=== PATIENT | female | born 1940 | race Caucasian/White ===

== ENCOUNTER 2019-09-03 14:15 | Emergency (ER) | payer MEDICARE ==
[~2019-09-03] VITALS: Ht 152.4 cm; Wt 49.9 kg
[2019-09-03] VITALS (8 sets, daily range): BP systolic 139–160; BP diastolic 43–64
[~2019-09-03 14:15] MED LIST: ASPIRIN FOR CHI81 MG PO; ATENOLOL50 MG PO; AUGMENTIN 500500 M1 PO; HCTZ/TRIAMTEREN1 CA2 PO; K-Dur 20MEQ20 MEQ PO; LUMIGAN 2.5 ML2.5 M1 OPH; TIMOPTIC 0.25% OPH; ZOCOR20 MG PO
[2019-09-03 15:20] LABS: BASO # 0.1 10*3/uL (0.0-0.1); BASO % 0.7 % (0.0-1.0); EOS # 0.2 10*3/uL (0.0-0.4); EOS % 2.7 % (1.0-4.0); HEMATOCRIT 23.4 % (37.0-47.0); HEMOGLOBIN 7.4 g/dl (12.0-16.0); LYMPH % 14.6 % (27.0-41.0); MEAN CELL VOLUME 102.6 fl (81.0-99.0); MEAN CORPUSCULAR HGB 32.5 pg (27.0-31.0); MEAN CORPUSCULAR HGB CONC 31.6 g/dl (33.0-37.0); MEAN PLATELET VOLUME 9.9 fl (9.6-12.3); MONO # 0.6 10*3/uL (0.1-1.0); MONO % 7.9 % (3.0-9.0); NEUT # 5.1 10*3/uL (2.3-7.9); NEUT % 73.7 % (47.0-73.0); PLATELET COUNT AUTOMATED 264 10*3/uL (130-400); RED BLOOD COUNT 2.28 10*6/uL (4.10-5.10); RED CELL DISTRI WIDTH 17.5 % (0-14.5); WHITE BLOOD COUNT 6.9 10*3/uL (4.8-10.8)
[2019-09-03] MEDS ORDERED: MIRTAZAPINE7.5 MG PO (15:28)
[2019-09-03] MEDS ORDERED: COMBIGAN 0.2%-010 ML OP (15:30)
[2019-09-03] MEDS ORDERED: VITAMIN D-32000 UNI1 PO (15:31)
[2019-09-03] MEDS ORDERED: ATIVAN0.5 MG PO (15:32)
[2019-09-03] MEDS ORDERED: LASIX20 MG PO (15:32)
[2019-09-03] MEDS ORDERED: LUTEIN20 M2 PO (15:33)
[2019-09-03] MEDS ORDERED: OMEPRAZOLE MAGN20 MG PO (15:33)
[2019-09-03] MEDS ORDERED: ULTRAM50 MG PO (15:34)
[2019-09-03 15:36] LABS: INTERNATIONAL NORM RATIO 0.9 (2.0-3.5)
[2019-09-03 15:43] LABS: ALBUMIN 2.9 gm/dl (3.1-4.5); CREATININE 1.75 mg/dL (0.55-1.02); POTASSIUM 3.7 mmol/L (3.5-5.1); TOTAL PROTEIN 6.6 gm/dL (6.4-8.2); TROPONIN I 0.045 ng/ml (<0.045)
== END 2019-09-03 20:30 | disposition home or self-care (01) ==
LOC: ED 14:15
PROVIDERS: Physician Assistant
DX: D64.9 Anemia, unspecified (principal); R79.1 Abnormal coagulation profile; N18.6 End stage renal disease; Z99.2 Dependence on renal dialysis; Z79.899 Other long term (current) drug therapy; Z79.82 Long term (current) use of aspirin

== ENCOUNTER 2019-09-16 18:53 | Inpatient (IN) | payer MEDICARE ==
[~2019-09-16] VITALS: Ht 152.4 cm; Wt 52.2 kg
[~2019-09-16 18:53] MED LIST changes: +ATIVAN0.5 MG PO; +COMBIGAN 0.2%-010 ML OP; +LASIX20 MG PO; +LUTEIN20 M2 PO; +MIRTAZAPINE7.5 MG PO; +OMEPRAZOLE MAGN20 MG PO; +ULTRAM50 MG PO; +VITAMIN D-32000 UNI1 PO
[2019-09-16 19:00] VITALS: BP 198/74
[2019-09-16 19:54] LABS: BASO # 0.1 10*3/uL (0.0-0.1); BASO % 0.7 % (0.0-1.0); EOS # 0.3 10*3/uL (0.0-0.4); HEMATOCRIT 30.6 % (37.0-47.0); HEMOGLOBIN 9.7 g/dl (12.0-16.0); LYMPH # 1.5 10*3/uL (1.3-4.4); LYMPH % 13.5 % (27.0-41.0); MEAN CELL VOLUME 94.4 fl (81.0-99.0); MEAN CORPUSCULAR HGB 29.9 pg (27.0-31.0); MEAN CORPUSCULAR HGB CONC 31.7 g/dl (33.0-37.0); MEAN PLATELET VOLUME 10.1 fl (9.6-12.3); MONO # 1.1 10*3/uL (0.1-1.0); NEUT # 7.8 10*3/uL (2.3-7.9); NEUT % 72.4 % (47.0-73.0); PLATELET COUNT AUTOMATED 261 10*3/uL (130-400); RED BLOOD COUNT 3.24 10*6/uL (4.10-5.10); RED CELL DISTRI WIDTH 21.2 % (0-14.5); WHITE BLOOD COUNT 10.8 10*3/uL (4.8-10.8)
[2019-09-16 20:06] LABS: CREATININE 5.04 mg/dL (0.55-1.02); POTASSIUM 4.3 mmol/L (3.5-5.1)
[2019-09-16 20:36] VITALS: BP 190/86
[2019-09-16 21:25] VITALS: BP 193/72
[2019-09-16] MEDS ORDERED: LASIX20 MG PO (21:42)
[2019-09-17] VITALS: BP 164/52
[2019-09-17 06:26] LABS: BASO # 0.1 10*3/uL (0.0-0.1); BASO % 0.5 % (0.0-1.0); EOS # 0.4 10*3/uL (0.0-0.4); EOS % 3.5 % (1.0-4.0); HEMATOCRIT 27.2 % (37.0-47.0); HEMOGLOBIN 8.8 g/dl (12.0-16.0); LYMPH % 17.8 % (27.0-41.0); MEAN CELL VOLUME 92.8 fl (81.0-99.0); MEAN CORPUSCULAR HGB CONC 32.4 g/dl (33.0-37.0); MEAN PLATELET VOLUME 9.7 fl (9.6-12.3); MONO # 0.9 10*3/uL (0.1-1.0); MONO % 8.4 % (3.0-9.0); NEUT # 7.7 10*3/uL (2.3-7.9); NEUT % 69.4 % (47.0-73.0); PLATELET COUNT AUTOMATED 266 10*3/uL (130-400); RED BLOOD COUNT 2.93 10*6/uL (4.10-5.10); RED CELL DISTRI WIDTH 20.8 % (0-14.5); WHITE BLOOD COUNT 11.1 10*3/uL (4.8-10.8)
[2019-09-17 06:55] LABS: ALBUMIN 2.9 gm/dl (3.1-4.5); CREATININE 5.18 mg/dL (0.55-1.02); PHOSPHOROUS 6.2 mg/dL (2.5-4.9); POTASSIUM 4.2 mmol/L (3.5-5.1); TOTAL PROTEIN 6.1 gm/dL (6.4-8.2)
[2019-09-17 06:56] LABS: ACT PARTIAL THROMBO TIME 26.8 SECONDS (20.0-32.1)
[2019-09-17 07:04] LABS: THYROID STIM HORMONE (HS) 4.47 uIU/ml (0.358-4.75)
[2019-09-17 07:51] LABS: VITAMIN D, 25-HYDROXY 44.5 ng/mL (30-100)
[2019-09-17 08:10] VITALS: BP 170/70
[2019-09-17 11:00] VITALS: BP 160/60
[2019-09-17 12:00] VITALS: BP 165/50
[2019-09-17 16:00] VITALS: BP 165/58
[2019-09-17 16:39] VITALS: BP 190/68
[2019-09-18] VITALS: BP 136/61
[2019-09-18 07:32] LABS: BASO % 0.4 % (0.0-1.0); EOS # 0.3 10*3/uL (0.0-0.4); EOS % 2.8 % (1.0-4.0); HEMATOCRIT 27.1 % (37.0-47.0); HEMOGLOBIN 8.6 g/dl (12.0-16.0); LYMPH # 1.6 10*3/uL (1.3-4.4); LYMPH % 14.9 % (27.0-41.0); MEAN CELL VOLUME 95.1 fl (81.0-99.0); MEAN CORPUSCULAR HGB 30.2 pg (27.0-31.0); MEAN CORPUSCULAR HGB CONC 31.7 g/dl (33.0-37.0); MONO # 0.9 10*3/uL (0.1-1.0); MONO % 7.9 % (3.0-9.0); NEUT % 73.4 % (47.0-73.0); PLATELET COUNT AUTOMATED 227 10*3/uL (130-400); RED BLOOD COUNT 2.85 10*6/uL (4.10-5.10); RED CELL DISTRI WIDTH 20.4 % (0-14.5); WHITE BLOOD COUNT 10.9 10*3/uL (4.8-10.8)
[2019-09-18 07:37] LABS: CREATININE 2.63 mg/dL (0.55-1.02); POTASSIUM 4.6 mmol/L (3.5-5.1)
[2019-09-18 16:00] VITALS: BP 144/74
[2019-09-18 20:00] VITALS: BP 136/82
[2019-09-19] VITALS: BP 140/67
[2019-09-19 06:22] LABS: BASO % 0.4 % (0.0-1.0); EOS # 0.3 10*3/uL (0.0-0.4); EOS % 3.5 % (1.0-4.0); HEMATOCRIT 23.8 % (37.0-47.0); HEMOGLOBIN 7.4 g/dl (12.0-16.0); LYMPH # 1.6 10*3/uL (1.3-4.4); LYMPH % 18.8 % (27.0-41.0); MEAN CELL VOLUME 96.7 fl (81.0-99.0); MEAN CORPUSCULAR HGB 30.1 pg (27.0-31.0); MEAN CORPUSCULAR HGB CONC 31.1 g/dl (33.0-37.0); MEAN PLATELET VOLUME 9.9 fl (9.6-12.3); MONO # 0.8 10*3/uL (0.1-1.0); MONO % 9.3 % (3.0-9.0); NEUT # 5.8 10*3/uL (2.3-7.9); NEUT % 67.5 % (47.0-73.0); PLATELET COUNT AUTOMATED 205 10*3/uL (130-400); RED BLOOD COUNT 2.46 10*6/uL (4.10-5.10); RED CELL DISTRI WIDTH 20.2 % (0-14.5); WHITE BLOOD COUNT 8.6 10*3/uL (4.8-10.8)
[2019-09-19 06:26] LABS: CREATININE 4.44 mg/dL (0.55-1.02)
[2019-09-19 07:30] VITALS: BP 140/58
[2019-09-19 11:40] VITALS: BP 126/46
[2019-09-19 16:00] VITALS: BP 153/52
[2019-09-19 20:00] VITALS: BP 144/47
[2019-09-20] VITALS (16 sets, daily range): BP systolic 121–184; BP diastolic 39–80
[2019-09-20 05:50] LABS: HEMATOCRIT 22.1 % (37.0-47.0); MEAN CELL VOLUME 96.9 fl (81.0-99.0); MEAN CORPUSCULAR HGB 30.3 pg (27.0-31.0); MEAN CORPUSCULAR HGB CONC 31.2 g/dl (33.0-37.0); MEAN PLATELET VOLUME 9.8 fl (9.6-12.3); PLATELET COUNT AUTOMATED 198 10*3/uL (130-400); RED BLOOD COUNT 2.28 10*6/uL (4.10-5.10); RED CELL DISTRI WIDTH 19.4 % (0-14.5); WHITE BLOOD COUNT 8.7 10*3/uL (4.8-10.8)
[2019-09-20 05:53] LABS: HEMOGLOBIN 6.9 g/dl (12.0-16.0)
[2019-09-20 06:37] LABS: ALBUMIN 2.8 gm/dl (3.1-4.5); CREATININE 6.09 mg/dL (0.55-1.02); POTASSIUM 5.1 mmol/L (3.5-5.1); TOTAL PROTEIN 5.8 gm/dL (6.4-8.2)
[2019-09-20 06:45] LABS: BASOPHILS 1 % (0-1); OVALOCYTES FEW; PLATELET SUFFICIENCY NORMAL (NORMAL); SCHISTOCYTES FEW; TARGET CELLS FEW; TOTAL CELLS COUNTED 100 #CELLS
[2019-09-20 16:08] LABS: BASO # 0.1 10*3/uL (0.0-0.1); BASO % 0.6 % (0.0-1.0); EOS # 0.3 10*3/uL (0.0-0.4); HEMATOCRIT 35.2 % (37.0-47.0); HEMOGLOBIN 11.9 g/dl (12.0-16.0); LYMPH # 1.2 10*3/uL (1.3-4.4); LYMPH % 12.4 % (27.0-41.0); MEAN CORPUSCULAR HGB 30.5 pg (27.0-31.0); MEAN CORPUSCULAR HGB CONC 33.8 g/dl (33.0-37.0); MEAN PLATELET VOLUME 10.4 fl (9.6-12.3); MONO # 0.9 10*3/uL (0.1-1.0); MONO % 10.2 % (3.0-9.0); NEUT # 6.8 10*3/uL (2.3-7.9); NEUT % 73.2 % (47.0-73.0); PLATELET COUNT AUTOMATED 185 10*3/uL (130-400); RED CELL DISTRI WIDTH 18.3 % (0-14.5); WHITE BLOOD COUNT 9.2 10*3/uL (4.8-10.8)
[2019-09-20 16:12] LABS: MEAN CELL VOLUME 90.3 fl (81.0-99.0)
[2019-09-21] VITALS (8 sets, daily range): BP systolic 127–188; BP diastolic 50–80
[2019-09-21 06:16] LABS: BASO # 0.1 10*3/uL (0.0-0.1); BASO % 0.7 % (0.0-1.0); EOS # 0.3 10*3/uL (0.0-0.4); EOS % 3.7 % (1.0-4.0); HEMATOCRIT 30.6 % (37.0-47.0); LYMPH # 1.4 10*3/uL (1.3-4.4); LYMPH % 17.5 % (27.0-41.0); MEAN CELL VOLUME 91.9 fl (81.0-99.0); MEAN CORPUSCULAR HGB CONC 32.7 g/dl (33.0-37.0); MEAN PLATELET VOLUME 10.2 fl (9.6-12.3); MONO # 0.8 10*3/uL (0.1-1.0); MONO % 9.6 % (3.0-9.0); NEUT # 5.5 10*3/uL (2.3-7.9); PLATELET COUNT AUTOMATED 207 10*3/uL (130-400); RED BLOOD COUNT 3.33 10*6/uL (4.10-5.10); RED CELL DISTRI WIDTH 18.6 % (0-14.5); WHITE BLOOD COUNT 8.1 10*3/uL (4.8-10.8)
[2019-09-21 06:25] LABS: CREATININE 4.18 mg/dL (0.55-1.02); POTASSIUM 4.3 mmol/L (3.5-5.1)
[2019-09-22] VITALS: BP 154/50
[2019-09-22 06:10] LABS: BASO # 0.1 10*3/uL (0.0-0.1); BASO % 0.7 % (0.0-1.0); EOS # 0.3 10*3/uL (0.0-0.4); EOS % 3.4 % (1.0-4.0); HEMATOCRIT 31.7 % (37.0-47.0); HEMOGLOBIN 10.1 g/dl (12.0-16.0); LYMPH # 1.8 10*3/uL (1.3-4.4); LYMPH % 17.6 % (27.0-41.0); MEAN CELL VOLUME 94.9 fl (81.0-99.0); MEAN CORPUSCULAR HGB 30.2 pg (27.0-31.0); MEAN CORPUSCULAR HGB CONC 31.9 g/dl (33.0-37.0); MEAN PLATELET VOLUME 9.8 fl (9.6-12.3); MONO % 10.2 % (3.0-9.0); NEUT # 6.7 10*3/uL (2.3-7.9); NEUT % 67.6 % (47.0-73.0); PLATELET COUNT AUTOMATED 241 10*3/uL (130-400); RED BLOOD COUNT 3.34 10*6/uL (4.10-5.10); RED CELL DISTRI WIDTH 18.3 % (0-14.5)
[2019-09-22 08:10] VITALS: BP 181/55
[2019-09-22 12:00] VITALS: BP 127/52
[2019-09-22] MEDS ORDERED: VANCOMYCIN500 MG/101 IV (15:10)
[2019-09-22] MEDS ORDERED: Carafate1 GM/10 ML PO (15:42)
[2019-09-22] MEDS ORDERED: OMEPRAZOLE40 MG PO (15:43)
== END 2019-09-22 16:06 | disposition home or self-care (01) | DRG 314 ==
LOC: ED 18:53 → EDHOLD 20:30 → 5E 20:30 → 4E 20:30 → 5E 09-19 17:31
PROVIDERS: Emergency Medicine Emergency Medical Services; Hospitalist; Internal Medicine; Student in an Organized Health Care Education/Training Program; ADMIT Internal Medicine
PROC: B548ZZA Ultrasonography of Superior Vena Cava, Guidance (ICD-10-PCS; principal; 2019-09-16)
PROC: 0JPT3XZ Removal of Tunneled Vascular Access Device from Trunk Subcutaneous Tissue and Fascia, Percutaneous Approach (ICD-10-PCS; principal; 2019-09-16)
PROC: 02PY33Z Removal of Infusion Device from Great Vessel, Percutaneous Approach (ICD-10-PCS; principal; 2019-09-16)
PROC: 02H633Z Insertion of Infusion Device into Right Atrium, Percutaneous Approach (ICD-10-PCS; principal; 2019-09-16)
PROC: 5A1D70Z Performance of Urinary Filtration, Intermittent, Less than 6 Hours Per Day (ICD-10-PCS; 2019-09-17)
PROC: 30233N1 Transfusion of Nonautologous Red Blood Cells into Peripheral Vein, Percutaneous Approach (ICD-10-PCS; 2019-09-20)
PROC: 5A1D70Z Performance of Urinary Filtration, Intermittent, Less than 6 Hours Per Day (ICD-10-PCS; 2019-09-20)
PROC: 0DB68ZX Excision of Stomach, Via Natural or Artificial Opening Endoscopic, Diagnostic (ICD-10-PCS; 2019-09-21)
PROC: 5A1D70Z Performance of Urinary Filtration, Intermittent, Less than 6 Hours Per Day (ICD-10-PCS; 2019-09-22)
DX: T82.7XXA Infection and inflammatory reaction due to other cardiac and vascular devices, implants and grafts, initial encounter (principal); K29.61 Other gastritis with bleeding; N18.6 End stage renal disease; L03.113 Cellulitis of right upper limb; R78.81 Bacteremia; I12.0 Hypertensive chronic kidney disease with stage 5 chronic kidney disease or end stage renal disease; E46 Unspecified protein-calorie malnutrition; D62 Acute posthemorrhagic anemia; Y82.8 Other medical devices associated with adverse incidents; Y92.89 Other specified places as the place of occurrence of the external cause; D63.8 Anemia in other chronic diseases classified elsewhere; I16.0 Hypertensive urgency; K29.80 Duodenitis without bleeding; E78.5 Hyperlipidemia, unspecified; R73.9 Hyperglycemia, unspecified; K44.9 Diaphragmatic hernia without obstruction or gangrene; Z96.1 Presence of intraocular lens; B96.89 Other specified bacterial agents as the cause of diseases classified elsewhere; K21.9 Gastro-esophageal reflux disease without esophagitis; Z90.49 Acquired absence of other specified parts of digestive tract; Z99.2 Dependence on renal dialysis; Z98.49 Cataract extraction status, unspecified eye; Z90.710 Acquired absence of both cervix and uterus; Z80.1 Family history of malignant neoplasm of trachea, bronchus and lung; Z82.3 Family history of stroke; Z79.82 Long term (current) use of aspirin; Z79.899 Other long term (current) drug therapy; Z68.21 Body mass index [BMI] 21.0-21.9, adult

== ENCOUNTER 2019-10-04 20:32 | Emergency (ER) | payer MEDICARE ==
[~2019-10-04] VITALS: Ht 152.4 cm; Wt 49.0 kg
[~2019-10-04 20:32] MED LIST changes: +Carafate1 GM/10 ML PO; +OMEPRAZOLE40 MG PO; +VANCOMYCIN500 MG/101 IV
[2019-10-04 21:51] LABS: BASO # 0.1 10*3/uL (0.0-0.1); BASO % 0.6 % (0.0-1.0); EOS # 0.2 10*3/uL (0.0-0.4); EOS % 2.2 % (1.0-4.0); HEMATOCRIT 24.8 % (37.0-47.0); HEMOGLOBIN 7.6 g/dl (12.0-16.0); LYMPH # 1.1 10*3/uL (1.3-4.4); LYMPH % 10.1 % (27.0-41.0); MEAN CELL VOLUME 100.8 fl (81.0-99.0); MEAN CORPUSCULAR HGB 30.9 pg (27.0-31.0); MEAN CORPUSCULAR HGB CONC 30.6 g/dl (33.0-37.0); MEAN PLATELET VOLUME 9.7 fl (9.6-12.3); MONO # 0.6 10*3/uL (0.1-1.0); MONO % 5.7 % (3.0-9.0); NEUT # 8.4 10*3/uL (2.3-7.9); NEUT % 80.1 % (47.0-73.0); PLATELET COUNT AUTOMATED 294 10*3/uL (130-400); RED BLOOD COUNT 2.46 10*6/uL (4.10-5.10); RED CELL DISTRI WIDTH 18.5 % (0-14.5); WHITE BLOOD COUNT 10.5 10*3/uL (4.8-10.8)
[2019-10-04 22:01] LABS: INTERNATIONAL NORM RATIO 0.9 (2.0-3.5)
[2019-10-04 22:05] LABS: CREATININE 3.86 mg/dL (0.55-1.02); POTASSIUM 4.3 mmol/L (3.5-5.1); TOTAL PROTEIN 6.6 gm/dL (6.4-8.2)
== END 2019-10-04 23:06 | disposition short-term general hospital (02) ==
LOC: ED 20:32
PROVIDERS: Emergency Medicine
DX: S72.001A Fracture of unspecified part of neck of right femur, initial encounter for closed fracture (principal); I12.0 Hypertensive chronic kidney disease with stage 5 chronic kidney disease or end stage renal disease; N18.6 End stage renal disease; Z99.2 Dependence on renal dialysis; E78.5 Hyperlipidemia, unspecified; Z79.82 Long term (current) use of aspirin; Z79.899 Other long term (current) drug therapy; Z90.710 Acquired absence of both cervix and uterus; Z90.49 Acquired absence of other specified parts of digestive tract; W18.09XA Striking against other object with subsequent fall, initial encounter; Y93.01 Activity, walking, marching and hiking; Y92.098 Other place in other non-institutional residence as the place of occurrence of the external cause; Y99.8 Other external cause status

== ENCOUNTER 2019-11-01 03:16 | Emergency (ER) | payer MEDICARE ==
[~2019-11-01] VITALS: Ht 152.4 cm; Wt 49.4 kg
== END 2019-11-01 04:45 | disposition other institution (70) ==
LOC: ED 03:16
DX: R94.2 Abnormal results of pulmonary function studies (principal); I12.0 Hypertensive chronic kidney disease with stage 5 chronic kidney disease or end stage renal disease; N18.6 End stage renal disease; Z79.899 Other long term (current) drug therapy; Z99.2 Dependence on renal dialysis; E78.5 Hyperlipidemia, unspecified; E78.00 Pure hypercholesterolemia, unspecified; Z90.710 Acquired absence of both cervix and uterus; Z90.49 Acquired absence of other specified parts of digestive tract

== ENCOUNTER 2019-11-05 12:56 | Inpatient (IN) | payer MEDICARE ==
[~2019-11-05] VITALS: Ht 152.4 cm; Wt 48.6 kg
[2019-11-05] VITALS (13 sets, daily range): BP systolic 152–189; BP diastolic 50–80
[~2019-11-05 12:56] MED LIST changes: +CIPRO500 MG PO
[2019-11-05 14:28] LABS: HEMATOCRIT 22.7 % (37.0-47.0); MEAN CELL VOLUME 106.6 fl (81.0-99.0); MEAN CORPUSCULAR HGB 31.9 pg (27.0-31.0); MEAN PLATELET VOLUME 9.5 fl (9.6-12.3); PLATELET COUNT AUTOMATED 237 10*3/uL (130-400); RED BLOOD COUNT 2.13 10*6/uL (4.10-5.10); RED CELL DISTRI WIDTH 19.2 % (0-14.5); WHITE BLOOD COUNT 7.3 10*3/uL (4.8-10.8)
[2019-11-05 14:32] LABS: HEMOGLOBIN 6.8 g/dl (12.0-16.0)
[2019-11-05 14:48] LABS: ATYPICAL LYMPHS 1 % (0-0); BASOPHILS 1 % (0-1); BURR CELLS FEW; PLATELET SUFFICIENCY NORMAL (NORMAL); TOTAL CELLS COUNTED 100 #CELLS
[2019-11-05 14:49] LABS: POLYCHROMASIA SLIGHT
[2019-11-05 14:53] LABS: ALBUMIN 2.9 gm/dl (3.1-4.5); CREATININE 3.79 mg/dL (0.55-1.02); POTASSIUM 3.9 mmol/L (3.5-5.1); TOTAL PROTEIN 6.2 gm/dL (6.4-8.2)
--- NOTE | 2019-11-05 17:30 | NUR ---
Time: 1729 A 78 year old FEMALE admitted to 5E under services of MARII LUNDY DO. Pt. arrived via stretcher from ER. Chief complaint: ANEMA, UTI, INABILITY TO AMBULATE. DELIO PADRON RN
--- NOTE | 2019-11-05 17:53 | NUR ---
NOTIFIED DR. LOZANO OF PATIENTS ELEVATED BP OF 180/60, ADVISED I HAD NOT RECONSILED MEDS YET, WILL LET HER KNOW WHEN I HAVE THEM DONE.
--- NOTE | 2019-11-05 17:55 | NUR ---
CALLED ANSWERING SERVICE FOR DR. TONG SPOKE WITH JESUSITA ADVISED OF CONSULT.
--- NOTE | 2019-11-05 18:15 | NUR ---
CALL PLACED TO [facility], REQUESTED MED LIST ADVISED THE WOULD FAX.
[2019-11-05] MEDS ORDERED: Ipratropium Brom3 ML INH (19:10)
[2019-11-05] MEDS ORDERED: ANTI-DIARRHEAL2 MG PO (19:13)
[2019-11-05] MEDS ORDERED: NEPHRO-VITE TA0.8 MG PO (19:16)
[2019-11-05] MEDS ORDERED: VITAMIN D3250 MCG PO (19:17)
[2019-11-05] MEDS ORDERED: TIMOLOL MALEATE5 ML OPH (19:19)
--- NOTE | 2019-11-05 19:20 | NUR ---
RECEIVED MED LIST FROM [facility], UPDATED MED REC, ADVISED DR. LOZANO, ADVISED THAT PATIENT HAS APPOINTMENT FOR MAPPING ON 11/06 WELL SURGERY FOR AV FISYUALA ON 11/08 ALL ANTICOAGULANTS ON HOLD.
--- NOTE | 2019-11-05 20:33 | NUR ---
SPOKE WITH DR LAWTON TO CLARIFY CODE STATUS AND TO LET HIM KNOW HOME MEDS ARE UP TO DATE.
--- NOTE | 2019-11-05 21:28 | NUR ---
PATIENT MEDICATED WITH ATIVAN PRESCRIBED FOR AGGITATION. WILL MONITOR FOR EFFECTIVENESS.
--- NOTE | 2019-11-05 22:28 | NUR ---
PATIENT IS A LITTLE CALMER AT THIS TIME. WILL CONTINUE TO MONITOR.
[2019-11-06] VITALS (14 sets, daily range): BP systolic 122–210; BP diastolic 48–90
--- NOTE | 2019-11-06 00:01 | NUR ---
BP STILL 190/50'S AFTER ADMINISTRATION OF ATIVAN. DR LAWTON CALLED- NEW ORDER RECEIVED.
--- NOTE | 2019-11-06 00:30 | NUR ---
10 MG IV LABETOLOL ADMINISTERED FOR BP 181/67. WILL MONITOR FOR EFFECTIVENESS.
--- NOTE | 2019-11-06 02:44 | NUR ---
24 HR chart check completed.
[2019-11-06 06:27] LABS: BASO # 0.1 10*3/uL (0.0-0.1); BASO % 0.9 % (0.0-1.0); EOS # 0.3 10*3/uL (0.0-0.4); EOS % 4.1 % (1.0-4.0); HEMOGLOBIN 10.9 g/dl (12.0-16.0); LYMPH # 1.2 10*3/uL (1.3-4.4); LYMPH % 16.1 % (27.0-41.0); MEAN CORPUSCULAR HGB 31.3 pg (27.0-31.0); MEAN CORPUSCULAR HGB CONC 32.1 g/dl (33.0-37.0); MEAN PLATELET VOLUME 9.8 fl (9.6-12.3); MONO # 0.7 10*3/uL (0.1-1.0); MONO % 8.9 % (3.0-9.0); NEUT # 5.3 10*3/uL (2.3-7.9); NEUT % 69.2 % (47.0-73.0); NUCLEATED RED BLOOD CELL 0.3 % (0.0-0.0); PLATELET COUNT AUTOMATED 254 10*3/uL (130-400); RED BLOOD COUNT 3.48 10*6/uL (4.10-5.10); RED CELL DISTRI WIDTH 19.4 % (0-14.5); WHITE BLOOD COUNT 7.7 10*3/uL (4.8-10.8)
[2019-11-06 06:41] LABS: CREATININE 4.73 mg/dL (0.55-1.02); MEAN CELL VOLUME 97.7 fl (81.0-99.0); PHOSPHOROUS 5.6 mg/dL (2.5-4.9); POTASSIUM 4.6 mmol/L (3.5-5.1)
--- NOTE | 2019-11-06 07:46 | NUR ---
ARRIVED ON SHIFT, PATIENT RESTING QUIETLY, POSITIONED ON RIGHT SIDE, BED IN LOW POSITION, WHEEL LOCKS ENGAGED, BED ALARM ON, SR UP X 2 FOR TURNING AND REPOSITING, WHITE BOARD UPDATED.
--- NOTE | 2019-11-06 07:48 | NUR ---
Shift chart check completed.
--- NOTE | 2019-11-06 08:08 | NUR ---
CALLED HOSPITALIST LINE, NO ANSWER, CALLED DIFFERENT HOSPITALIST LINE, SPOKE TO ADVISED OF PATIENTS ELEVATED BP OF 200/80 MANUALLY, AND 211/86 ON AB MACHINE, SHE VERSED SHE WILL LET DR. MIRANDA KNOW.
--- NOTE | 2019-11-06 10:10 | NUR ---
DR. MIRANDA ADVISED OF PATIENTS CONTINUED ELEVATED BP OF 200/84, VERSED THAT SHE WILL PUT ORDER IN.
--- NOTE | 2019-11-06 11:42 | NUR ---
REPORTED ELEVATED BP OF 210/[address] MIRANDA, ADVISED TO CALL DR. TONG FOR FURTHER ORDERS.
--- NOTE | 2019-11-06 11:45 | NUR ---
CALL PLACED TO DR. FLOREZ ANSWERING SERVICE, SPOKE WITH NORRIS, REQUESTED CALL BACK, DUE TO ELEVATED BP'S
--- NOTE | 2019-11-06 11:55 | NUR ---
RECEIVED CALL BACK FROM DR. DE FROM DR. [facility], ORDER RECEIVED FOR NORVASC 5MG BID, CLONIDINE 0.1MG EVERY 8 HOURS NEEDED FOR SYSTOLIC BP > 200, UPDATE TO DR. MIRANDA.
--- NOTE | 2019-11-06 12:30 | NUR ---
PER DR. MIRANDA'S REQUEST CALL PLACED TO [facility] AND ASKED IF PATIENT COULD RETURN TO [facility] TODAY, SPOKE WITH FACILITY NURSE MARY JANE, ADVISED THAT YES PATIENT COULD RETURN TODAY.
[2019-11-06] MEDS ORDERED: AMLODIPINE BESYL5 MG PO (13:05)
--- NOTE | 2019-11-06 13:45 | NUR ---
Discharge instructions reviewed with patient/family. Patient receptive and verbalizes understanding. Follow-up care arranged. Written instructions given to patient/family, call placed to [facility], spoke with Kathryn MUSTAFA, nurse to nurse given, advised that patients spouse to transport, she versed that spouse was not allowed to come in, per spouse he was aware he would have to just drop her off. Right IJ removed, patient taken out by PA, via w/c. DELIO PADRON
== END 2019-11-06 13:45 | disposition other institution (70) | DRG 811 ==
LOC: ED 12:56 → EDHOLD 16:10 → 5E 17:03
PROVIDERS: Emergency Medicine; Internal Medicine; ADMIT Internal Medicine
PROC: 30233N1 Transfusion of Nonautologous Red Blood Cells into Peripheral Vein, Percutaneous Approach (ICD-10-PCS; principal; 2019-11-05)
DX: D64.9 Anemia, unspecified (principal); G93.41 Metabolic encephalopathy; N18.6 End stage renal disease; N39.0 Urinary tract infection, site not specified; E44.0 Moderate protein-calorie malnutrition; I12.0 Hypertensive chronic kidney disease with stage 5 chronic kidney disease or end stage renal disease; R26.2 Difficulty in walking, not elsewhere classified; R31.9 Hematuria, unspecified; R82.4 Acetonuria; R80.9 Proteinuria, unspecified; Z96.1 Presence of intraocular lens; Z96.641 Presence of right artificial hip joint; Z99.2 Dependence on renal dialysis; Z86.73 Personal history of transient ischemic attack (TIA), and cerebral infarction without residual deficits; Z79.899 Other long term (current) drug therapy; Z79.82 Long term (current) use of aspirin; Z98.49 Cataract extraction status, unspecified eye; Z90.49 Acquired absence of other specified parts of digestive tract; Z90.710 Acquired absence of both cervix and uterus; Z80.1 Family history of malignant neoplasm of trachea, bronchus and lung; Z82.3 Family history of stroke; Z68.20 Body mass index [BMI] 20.0-20.9, adult

== ENCOUNTER 2020-04-13 16:49 | Emergency (ER) | payer MEDICARE ==
[~2020-04-13] VITALS: Ht 152.4 cm; Wt 46.7 kg
[~2020-04-13 16:49] MED LIST changes: +AMLODIPINE BESYL5 MG PO; +ANTI-DIARRHEAL2 MG PO; +Ipratropium Brom3 ML INH; +NEPHRO-VITE TA0.8 MG PO; +TIMOLOL MALEATE5 ML OPH; +VITAMIN D3250 MCG PO
[2020-04-13 18:49] LABS: BASO # 0.1 10*3/uL (0.0-0.1); BASO % 0.9 % (0.0-1.0); EOS # 0.3 10*3/uL (0.0-0.4); EOS % 4.3 % (1.0-4.0); HEMATOCRIT 29.5 % (37.0-47.0); LYMPH # 1.1 10*3/uL (1.3-4.4); LYMPH % 18.8 % (27.0-41.0); MEAN CELL VOLUME 105.4 fl (81.0-99.0); MEAN CORPUSCULAR HGB 30.4 pg (27.0-31.0); MEAN CORPUSCULAR HGB CONC 28.8 g/dl (33.0-37.0); MEAN PLATELET VOLUME 9.3 fl (9.6-12.3); MONO # 0.6 10*3/uL (0.1-1.0); MONO % 10.4 % (3.0-9.0); NEUT # 3.8 10*3/uL (2.3-7.9); NEUT % 65.3 % (47.0-73.0); PLATELET COUNT AUTOMATED 210 10*3/uL (130-400); RED CELL DISTRI WIDTH 21.3 % (0-14.5); WHITE BLOOD COUNT 5.9 10*3/uL (4.8-10.8)
[2020-04-13 19:01] LABS: CREATININE 3.84 mg/dL (0.55-1.02); POTASSIUM 5.6 mmol/L (3.5-5.1)
[2020-04-13 19:06] LABS: ACT PARTIAL THROMBO TIME 25.3 SECONDS (20.0-32.1); INTERNATIONAL NORM RATIO 0.9 (2.0-3.5)
== END 2020-04-13 19:19 | disposition home or self-care (01) ==
LOC: ED 16:49
PROVIDERS: Emergency Medicine
DX: I12.0 Hypertensive chronic kidney disease with stage 5 chronic kidney disease or end stage renal disease (principal); N18.6 End stage renal disease; D63.1 Anemia in chronic kidney disease; E87.5 Hyperkalemia; Z99.2 Dependence on renal dialysis; Z79.899 Other long term (current) drug therapy

== ENCOUNTER 2020-07-07 14:17 | Observation (INO) | payer MEDICARE ==
[~2020-07-07] VITALS: Ht 152.4 cm; Wt 48.7 kg
[2020-07-07] VITALS (9 sets, daily range): BP systolic 160–246; BP diastolic 56–120
[2020-07-07 14:49] LABS: HEMATOCRIT 22.1 % (37.0-47.0); MEAN CELL VOLUME 102.8 fl (81.0-99.0); MEAN CORPUSCULAR HGB 31.2 pg (27.0-31.0); MEAN CORPUSCULAR HGB CONC 30.3 g/dl (33.0-37.0); MEAN PLATELET VOLUME 9.6 fl (9.6-12.3); PLATELET COUNT AUTOMATED 228 10*3/uL (130-400); RED BLOOD COUNT 2.15 10*6/uL (4.10-5.10); WHITE BLOOD COUNT 6.3 10*3/uL (4.8-10.8)
[2020-07-07 15:07] LABS: TOTAL CELLS COUNTED 100 #CELLS
[2020-07-07 15:08] LABS: ALKALINE PHOSPHATASE 78 U/L (45-117); BUN 12 mg/dl (7-24); CHLORIDE 103 mmol/L (98-107); CREATININE 1.46 mg/dL (0.55-1.02); LIPASE 165 U/L (73-393); POTASSIUM 3.3 mmol/L (3.5-5.1); SGOT/AST 30 IU/L (3-35); SGPT/ALT 22 U/L (12-78); SODIUM 140 mmol/L (136-145); TOTAL PROTEIN 6.4 gm/dL (6.4-8.2)
[2020-07-07 15:08] LABS: PLATELET SUFFICIENCY NORMAL (NORMAL)
[2020-07-07 15:11] LABS: ACT PARTIAL THROMBO TIME 28.6 SECONDS (20.0-32.1)
[2020-07-07] MEDS ORDERED: LUMIGAN50 DRP OPH (17:39)
[2020-07-07 21:31] LABS: BASO % 0.5 % (0.0-1.0); EOS # 0.1 10*3/uL (0.0-0.4); EOS % 1.9 % (1.0-4.0); HEMATOCRIT 29.3 % (37.0-47.0); LYMPH # 0.9 10*3/uL (1.3-4.4); LYMPH % 12.5 % (27.0-41.0); MEAN CORPUSCULAR HGB 30.4 pg (27.0-31.0); MEAN CORPUSCULAR HGB CONC 31.7 g/dl (33.0-37.0); MEAN PLATELET VOLUME 8.9 fl (9.6-12.3); MONO # 0.7 10*3/uL (0.1-1.0); MONO % 8.8 % (3.0-9.0); NEUT # 5.7 10*3/uL (2.3-7.9); PLATELET COUNT AUTOMATED 214 10*3/uL (130-400); RED BLOOD COUNT 3.06 10*6/uL (4.10-5.10); RED CELL DISTRI WIDTH 20.3 % (0-14.5); WHITE BLOOD COUNT 7.5 10*3/uL (4.8-10.8)
[2020-07-07 21:37] LABS: MEAN CELL VOLUME 95.8 fl (81.0-99.0)
[2020-07-08] VITALS: BP 168/57
[2020-07-08 06:46] LABS: BASO % 0.6 % (0.0-1.0); EOS # 0.3 10*3/uL (0.0-0.4); EOS % 3.8 % (1.0-4.0); HEMATOCRIT 26.6 % (37.0-47.0); LYMPH % 15.5 % (27.0-41.0); MEAN CELL VOLUME 96.4 fl (81.0-99.0); MEAN CORPUSCULAR HGB 30.1 pg (27.0-31.0); MEAN CORPUSCULAR HGB CONC 31.2 g/dl (33.0-37.0); MEAN PLATELET VOLUME 9.5 fl (9.6-12.3); MONO # 0.7 10*3/uL (0.1-1.0); MONO % 10.4 % (3.0-9.0); NEUT # 4.6 10*3/uL (2.3-7.9); NEUT % 69.4 % (47.0-73.0); PLATELET COUNT AUTOMATED 223 10*3/uL (130-400); RED BLOOD COUNT 2.76 10*6/uL (4.10-5.10); RED CELL DISTRI WIDTH 20.2 % (0-14.5); WHITE BLOOD COUNT 6.6 10*3/uL (4.8-10.8)
[2020-07-08 07:06] LABS: ALBUMIN 2.8 gm/dl (3.1-4.5)
[2020-07-08 07:09] LABS: ACT PARTIAL THROMBO TIME 24.7 SECONDS (20.0-32.1)
[2020-07-08 07:15] LABS: CREATININE 2.75 mg/dL (0.55-1.02); FREE T4 0.97 ng/dl (0.76-1.46); THYROID STIM HORMONE (HS) 7.07 uIU/ml (0.358-4.75); TOTAL PROTEIN 5.7 gm/dL (6.4-8.2)
[2020-07-08 07:43] LABS: VITAMIN D, 25-HYDROXY 46.5 ng/mL (30-100)
[2020-07-08 08:00] VITALS: BP 180/65
[2020-07-08 12:00] VITALS: BP 150/51
[2020-07-08 14:16] LABS: BASO # 0.1 10*3/uL (0.0-0.1); BASO % 0.9 % (0.0-1.0); EOS # 0.2 10*3/uL (0.0-0.4); EOS % 2.6 % (1.0-4.0); HEMATOCRIT 32.1 % (37.0-47.0); LYMPH # 1.4 10*3/uL (1.3-4.4); LYMPH % 16.8 % (27.0-41.0); MEAN CELL VOLUME 101.6 fl (81.0-99.0); MEAN CORPUSCULAR HGB CONC 30.5 g/dl (33.0-37.0); MEAN PLATELET VOLUME 9.8 fl (9.6-12.3); MONO % 11.9 % (3.0-9.0); NEUT # 5.4 10*3/uL (2.3-7.9); NEUT % 67.6 % (47.0-73.0); PLATELET COUNT AUTOMATED 229 10*3/uL (130-400); RED BLOOD COUNT 3.16 10*6/uL (4.10-5.10); RED CELL DISTRI WIDTH 20.5 % (0-14.5); WHITE BLOOD COUNT 8.1 10*3/uL (4.8-10.8)
== END 2020-07-08 15:26 | disposition home or self-care (01) ==
LOC: ED 14:17 → EDHOLD 16:51 → 4E 16:51 → EDHOLD 17:16 → 4E 17:22
PROVIDERS: Internal Medicine; Nurse Practitioner Family; ADMIT Internal Medicine; ATTEND Internal Medicine
DX: D63.1 Anemia in chronic kidney disease (principal); I12.0 Hypertensive chronic kidney disease with stage 5 chronic kidney disease or end stage renal disease; N18.6 End stage renal disease; K92.2 Gastrointestinal hemorrhage, unspecified; E87.6 Hypokalemia; E44.1 Mild protein-calorie malnutrition; R73.9 Hyperglycemia, unspecified; E78.5 Hyperlipidemia, unspecified; H35.30 Unspecified macular degeneration

== ENCOUNTER → 2020-07-13 | Outpatient (CLI) | payer MEDICARE ==
[~2020-07-13] MED LIST changes: +LUMIGAN50 DRP OPH
== END | disposition home or self-care (01) ==
LOC: LAB 12:22
PROVIDERS: ATTEND Family Medicine
DX: R20.2 Paresthesia of skin (principal)

== ENCOUNTER 2020-08-08 09:33 | Emergency (ER) | payer MEDICARE ==
[2020-08-08] VITALS (7 sets, daily range): BP systolic 155–163; BP diastolic 54–68
[~2020-08-08] VITALS: Ht 152.4 cm; Wt 47.6 kg
[2020-08-08 10:32] LABS: BASO # 0.1 10*3/uL (0.0-0.1); BASO % 0.7 % (0.0-1.0); EOS # 0.2 10*3/uL (0.0-0.4); EOS % 1.7 % (1.0-4.0); HEMATOCRIT 27.3 % (37.0-47.0); LYMPH # 1.3 10*3/uL (1.3-4.4); LYMPH % 14.3 % (27.0-41.0); MEAN CELL VOLUME 105.4 fl (81.0-99.0); MEAN CORPUSCULAR HGB 30.5 pg (27.0-31.0); MEAN CORPUSCULAR HGB CONC 28.9 g/dl (33.0-37.0); MEAN PLATELET VOLUME 9.4 fl (9.6-12.3); MONO # 0.5 10*3/uL (0.1-1.0); MONO % 5.6 % (3.0-9.0); NEUT % 77.1 % (47.0-73.0); PLATELET COUNT AUTOMATED 295 10*3/uL (130-400); RED BLOOD COUNT 2.59 10*6/uL (4.10-5.10); RED CELL DISTRI WIDTH 19.9 % (0-14.5)
[2020-08-08 10:49] LABS: ALBUMIN 3.2 gm/dl (3.1-4.5); CREATININE 3.91 mg/dL (0.55-1.02); POTASSIUM 4.6 mmol/L (3.5-5.1); TOTAL PROTEIN 6.9 gm/dL (6.4-8.2)
[2020-08-08 12:26] LABS: ABG BASE EXCESS 3.6 mmol/L (-2.0-2.0); ARTERIAL BLOOD GAS PH 7.452 (7.35-7.45)
== END 2020-08-08 19:35 | disposition home or self-care (01) ==
LOC: ED 09:33
PROVIDERS: Internal Medicine
DX: D64.9 Anemia, unspecified (principal); J96.90 Respiratory failure, unspecified, unspecified whether with hypoxia or hypercapnia; Z79.899 Other long term (current) drug therapy; Z79.2 Long term (current) use of antibiotics; Z90.49 Acquired absence of other specified parts of digestive tract

== ENCOUNTER → 2020-08-11 | Outpatient (CLI) | payer MEDICARE | END | disposition home or self-care (01) | LOC: COVID19 14:31 | PROVIDERS: ATTEND Internal Medicine | DX: Z20.828 Contact with and (suspected) exposure to other viral communicable diseases (principal) ==

== ENCOUNTER 2021-03-01 19:30 | Emergency (ER) | payer MEDICARE | END 2021-03-01 23:31 | LOC: ED 19:30 | DX: I46.9 Cardiac arrest, cause unspecified (principal); I12.0 Hypertensive chronic kidney disease with stage 5 chronic kidney disease or end stage renal disease; N18.6 End stage renal disease; E78.5 Hyperlipidemia, unspecified; Z79.899 Other long term (current) drug therapy; Z86.73 Personal history of transient ischemic attack (TIA), and cerebral infarction without residual deficits; Z98.890 Other specified postprocedural states; Z90.49 Acquired absence of other specified parts of digestive tract; Z90.711 Acquired absence of uterus with remaining cervical stump ==